=== PATIENT | male | born 1970 | race Caucasian/White ===

== ENCOUNTER 2021-08-04 15:20 | Emergency (ER) | payer OTHER ==
[~2021-08-04] VITALS: Ht 170.2 cm; Wt 69.9 kg
[~2021-08-04 15:20] MED LIST: AMLO5TAB PO; DIAZ10TA7 PO; DIAZ5TAB7 IVP; HYDR-5191 PO; HYDR2TAB6 IVP; LEVO500T6 IV; METO-251 PO; METR500S14 IV; PROM25TA85 IVP; ZOLP5TAB1 PO; [UNRECOGNIZED DRUG - CODE] IVP
[2021-08-04 15:37] VITALS: BP 210/130
--- NOTE | 2021-08-04 15:41 | NUR ---
PT AMB TO BED 11.
--- NOTE | 2021-08-04 16:03 | NUR ---
50 Y MALE WITH C/O OF BODY PAIN DUE TO HIS LUPUS. PT STATED HIS HEAD AND ABDOMEN ARE IN PAIN AT 10/10. PT CURRENTLY TAKES DILAUD AT HOME, BUT STARTED TO EXPERINCE NAUSEA/VOMITTING DUE TO THE PAIN. PT IS REQUESTING PAIN RELIEF PMH: LUPUS, CHRON'S ALLERGIES: SEE CHART
[2021-08-04] MEDS ORDERED: LABETALOL 100 MG/20 ML VIAL IVP ONE (16:15)
--- NOTE | 2021-08-04 16:16 | NUR ---
PT REFUSING EKG FROM EMT
--- NOTE | 2021-08-04 16:18 | NUR ---
DR. OVALLE BEDSIDE EVALUATIN GPT
[2021-08-04] MEDS ORDERED: HYDROmorphone PFS 2 MG/ML SYR IM ONE (16:30)
[2021-08-04] MEDS ORDERED: diphenhydrAMINE 50 MG/ML VIAL IM ONE (16:30)
--- NOTE | 2021-08-04 16:34 | NUR ---
XRAY BEDSIDE WITH PT
[2021-08-04 17:47] VITALS: BP 209/119
--- NOTE | 2021-08-04 17:47 | NUR ---
Patient does not wish to proceed with medical care recommended by DR. OVALLE. Patient given information related to possible complications, up to and including , which could occur as a result of leaving hospital at this time. Patient verbalizes understanding of risks involved leaving against medical advice. Patient has signed AMA form.
== END 2021-08-04 17:42 | disposition left against medical advice (07) ==
LOC: MED 15:20
DX: M25.562 Pain in left knee (principal); I10 Essential (primary) hypertension; R51.9 Headache, unspecified; J44.9 Chronic obstructive pulmonary disease, unspecified; Z88.8 Allergy status to other drugs, medicaments and biological substances; Z79.899 Other long term (current) drug therapy; Z85.118 Personal history of other malignant neoplasm of bronchus and lung; Z85.028 Personal history of other malignant neoplasm of stomach; Z90.49 Acquired absence of other specified parts of digestive tract; Z98.890 Other specified postprocedural states
CPT/HCPCS: 73562; 96372; 99284; J1170; J1200